=== PATIENT | male | born 1980 | race Asian ===

== ENCOUNTER 2017-03-15 15:08 | Emergency (ER) | payer OTHER ==
[~2017-03-15] VITALS: Ht 182.9 cm; Wt 93.4 kg
[2017-03-15 19:41] VITALS: BP 141/95
== END 2017-03-15 19:41 | disposition home or self-care (01) ==
LOC: ED 15:08
DX: M25.572 Pain in left ankle and joints of left foot (principal); M79.89 Other specified soft tissue disorders; E78.00 Pure hypercholesterolemia, unspecified
CPT/HCPCS: J1885